=== PATIENT | male | born 1950 | race American Indian/Alaskan Native ===

== ENCOUNTER 2019-01-02 05:34 | Emergency (ER) | payer MEDICARE ==
--- NOTE | 2019-01-02 07:01 | Cat Scan Report ---
CT CERVICAL SPINE WITHOUT CONTRAST INDICATION: fall, neck pain TECHNIQUE: All CT scans at this location are performed using CT dose reduction for ALARA by means of automated exposure control. Axial CT images were obtained through the cervical spine. Sagittal and co ana paula reformatted images were produced. COMPARISON: None available. Cervical spine findings: Prominent diffuse cervical degenerative and arthritic changes are noted. Dis c space narrowing is noted at all levels below C3. Anterior and posterior osteophytes are seen at mul tiple levels. No fractures or subluxations are seen. Prominent C1 to arthritic changes are noted. No obvious disc herniation is seen. Additional findings: None. IMPRESSION: No acute findings. Signer Name: Sergio More MD Signed: 01/02/2019 6:57 AM Workstation Name: [id number]
--- NOTE | 2019-01-02 07:45 | Emergency Department Report ---
ED Fall HPI - General Chief Complaint: Back Pain/Injury Stated Complaint: FALL IN [employer] LAST NIGHT Time Seen by Provider: 01/02/19 07:08 Source: patient Mode of arrival: Ambulatory - History of Present Illness Initial Comments: Patient is a 68-year-old male presents to the emergency room after a slip and fall at the grocery store last night at 9:30 PM. He states that they had just mopped the floor and he did not see the sign and he slipped and fell. Patient is complaining of neck pain and left shoulder pain. Patient has been ambulatory since then without any difficulty. He denies loss of consciousness, hitting his head, numbness, weakness, bowel or bladder incontinence. He denies any previous injury of his neck or his shoulder. He denies any other injuries. He has a past medical history of hypertension and hyperlipidemia. pt states took his lisinopril this morning around 5:30 AM. - Related Data Previous Rx's Medication Instructions Recorded Last Taken Type Naproxen [Naprosyn TAB] 500 mg PO BID PRN #14 tablet 01/02/19 Unknown Rx Allergies Allergy/AdvReac Type Severity Reaction Status Date / Time No Known Allergies Allergy Unverified 01/02/19 05:37 ED Review of Systems ROS: Stated complaint: FALL IN [employer] LAST NIGHT Other details as noted in HPI Comment: All other systems reviewed and negative ED Past Medical Hx - Past Medical History Previous Medical History?: Yes Hx Hypertension: Yes Additional medical history: High Cholesterol - Surgical History Past Surgical History?: Yes Additional Surgical History: Left Achilles - Social History Smoking Status: Current Some Day Smoker - Medications Home Medications: Home Medications Medication Instructions Recorded Confirmed Last Taken Type Naproxen [Naprosyn TAB] 500 mg PO BID PRN #14 tablet 01/02/19 Unknown Rx ED Physical Exam - General Limitations: No Limitations General appearance: alert, in no apparent distress - Head Head exam: Present: atraumatic, normocephalic - Eye Eye exam: Present: normal appearance, PERRL, EOMI. Absent: periorbital swelling, periorbital tenderness - ENT ENT exam: Present: mucous membranes moist - Neck Neck exam: Present: normal inspection, tenderness (mild left sided paraspinal C- spine muscular TTP, no midline C-spine tenderness, no step offs, no deformities), full ROM - Respiratory Respiratory exam: Present: normal lung sounds bilaterally. Absent: respiratory distress, wheezes, rales, rhonchi, stridor, chest wall tenderness, accessory muscle use, decreased breath sounds, prolonged expiratory - Cardiovascular Cardiovascular Exam: Present: regular rate, normal rhythm, normal heart sounds. Absent: systolic murmur, diastolic murmur, rubs, gallop - Extremities Exam Extremities exam: Present: other (mild TTP of the left trapezius muscle, no bony TTP of the left shoulder, no AC joint tenderness, no sulcus sign, no obvious joint laxity, FROM of the left shoulder without difficulty ) - Back Exam Back exam: Present: normal inspection, full ROM. Absent: paraspinal tenderness, vertebral tenderness - Neurological Exam Neurological exam: Present: alert, oriented X3, CN II-XII intact, normal gait. Absent: motor sensory deficit - Psychiatric Psychiatric exam: Present: normal affect, normal mood - Skin Skin exam: Present: warm, dry, intact ED Course Vital Signs 01/02/19 01/02/19 05:40 08:06 Temperature 98.2 F 97.9 F Pulse Rate 80 76 Respiratory 18 18 Rate Blood Pressure 179/103 Blood Pressure 179/101 [Right] O2 Sat by Pulse 98 100 Oximetry ED Medical Decision Making - Radiology Data Radiology results: report reviewed CT CERVICAL SPINE WITHOUT CONTRAST INDICATION: fall, neck pain TECHNIQUE: All CT scans at this location are performed using CT dose reduction for ALARA by means of automated exposure control. Axial CT images were obtained through the cervical spine. Sagittal and coronal reformatted images were produced. COMPARISON: None available. Cervical spine findings: Prominent diffuse cervical degenerative and arthritic changes are noted. Disc space narrowing is noted at all levels below C3. Anterior and posterior osteophytes are seen at multiple levels. No fractures or subluxations are seen. Prominent C1 to arthritic changes are noted. No obvious disc herniation is seen. Additional findings: None. IMPRESSION: No acute findings. Signer Name: Sergio More MD Signed: 01/02/2019 6:57 AM Workstation Name: [id number] Transcribed By: JOSSE Dictated By: Sergio More MD Electronically Authenticated By: Sergio More MD Signed Date/Time: 01/02/19 0657 - Medical Decision Making Patient is a 68-year-old male presents to the emergency room after a slip and fall at the grocery store last night at 9:30 PM. He states that they had just mopped the floor and he did not see the sign and he slipped and fell. Patient is complaining of neck pain and left shoulder pain. Patient has been ambulatory since then without any difficulty. He denies loss of consciousness, hitting his head, numbness, weakness, bowel or bladder incontinence. He denies any previous injury of his neck or his shoulder. He denies any other injuries. He has a past medical history of hypertension and hyperlipidemia. pt states took his lisinopril this morning around 5:30 AM. on exam: mild left sided paraspinal C-spine muscular TTP, no midline C-spine tenderness, no step offs, no deformities, mild TTP of the left trapezius muscle, no bony TTP of the left shoulder, no AC joint tenderness, no sulcus sign, no obvious joint laxity, FROM of the left shoulder without difficulty, no focal neuro deficits. CT cervical spine: No acute findings. vitals with elevated blood pressure, discussed findings with patient, advised pt to keep a blood pressure log and discuss with his primary care doctor as his medication may need to be adjusted. pt given prescription for naproxen. offered pt muscle relaxer to use as needed and he declined. advised pt to take medication as prescribed as needed. may use ice, heat, rest, epsom salt bath. follow up with a primary care doctor in the next 2- 3 days. return to the emergency room for any new or worsening symptoms. - Differential Diagnosis strain, sprain, fx, dislocation, spondylolysis, spondylolisthesis Critical care attestation.: If time is entered above; I have spent that time in minutes in the direct care of this critically ill patient, excluding procedure time. ED Disposition Clinical Impression: Neck pain Fall Qualifiers: Encounter type: initial encounter Qualified Code(s): W19.XXXA - Unspecified fall, initial encounter Strain of left trapezius muscle Qualifiers: Encounter type: initial encounter Qualified Code(s): S46.812A - Strain of other muscles, fascia and tendons at shoulder and upper arm level, left arm, initial encounter Disposition: TO HOME OR SELFCARE Is pt being admited?: No Does the pt Need Aspirin: No Condition: Stable Instructions: Muscle Strain (ED) Additional Instructions: take medication as prescribed as needed. may use ice, heat, rest, epsom salt bath. follow up with a primary care doctor in the next 2-3 days. return to the e mergency room for any new or worsening symptoms. Prescriptions: Naproxen [Naprosyn TAB] 500 mg PO BID PRN #14 tablet PRN Reason: pain Referrals: HUGH GREOGRIO MD [Primary Care Provider] - 2-3 Days Time of Disposition: 08:02 Print Language: MALAY
[2019-01-02 08:07] VITALS: BP 179/101
== END 2019-01-02 08:07 | disposition home or self-care (01) ==
LOC: ED 05:34
DX: S46.812A Strain of other muscles, fascia and tendons at shoulder and upper arm level, left arm, initial encounter (principal); M54.2 Cervicalgia; I10 Essential (primary) hypertension; E78.00 Pure hypercholesterolemia, unspecified; F17.200 Nicotine dependence, unspecified, uncomplicated; Z98.890 Other specified postprocedural states; W01.0XXA Fall on same level from slipping, tripping and stumbling without subsequent striking against object, initial encounter; Y93.89 Activity, other specified; Y92.89 Other specified places as the place of occurrence of the external cause; Y99.8 Other external cause status
CPT/HCPCS: 72125